=== PATIENT | male | born 1990 | race Caucasian/White ===

== ENCOUNTER 2025-03-27 08:38 | Emergency (ER) | payer OTHER, SELFPAY ==
[2025-03-27 08:45] VITALS: BP 141/87
[2025-03-27 09:22] LABS: Hematocrit 44.8 % (39.0-52.0); Hemoglobin 14.9 g/dL (13.0-18.0); Mean Corp Hgb Conc. 33.3 g/dL (33.0-37.0); Mean Corpuscular Volume 90.3 fL (80.0-94.0); Nucleated Red Blood Cells % 0 % (-); Platelet Count 209 10^3/uL (130-400); Red Cell Dist. Width 13.2 % (11.5-14.5)
[2025-03-27 09:34] LABS: ALT (SGPT) 31 U/L (0-50); AST (SGOT) 28 U/L (17-59); Albumin 4.2 g/dl (3.5-5.0); Alkaline Phosphatase 92 U/L (38-126); Blood Urea Nitrogen 16 mg/dl (9-20); Calcium 8.5 mg/dl (8.4-10.2); Carbon Dioxide 25 mmol/L (22-30); Chloride 105 mmol/L (98-107); Glucose 111 mg/dl (70-99); Lipase 68 U/L (23-300); Potassium 4.2 mmol/L (3.5-5.1); Sodium 138 mmol/L (135-145); Total Protein 7.2 g/dl (6.3-8.2); eGFR > 60.00
[2025-03-27 12:00] VITALS: BP 139/84
--- NOTE | 2025-03-27 13:33 | ED.GENMED ---
History of Present Illness
General
Chief Complaint: Abdominal Symptoms
Time Seen by Provider: 03/27/25 11:05
History of Present Illness
History of Present Illness:
35-year-old male presents to the emergency department for evaluation of left lower abdominal pain associated with vomiting and diarrhea beginning last night. Pain feels similar to his past bouts of diverticulitis however he does not typically
experience vomiting with this. Denies any fevers, chills, or sweats. No hematemesis or hematochezia. No history of abdominal surgeries.
Review of Systems
Review of Systems
Allergies reviewed?: Yes
All Other Systems: ROS reviewed and negative except as documented in HPI and ROS
Phy Exam
Physical Exam
Physical Exam:
GEN: Well appearing, NAD, WDWN
HEENT: Oral mucosa moist, no scleral icterus
Cardiac: Regular rate
Lung: No respiratory distress, no tachypnea
Abdomen: Soft, diffusely tender 4 quadrants without focal pain
MSK: No gross deformity or injuries
Skin: Good color, no pallor or jaundice, no rashes
Neuro: AO x3, moves all extremities freely
Psych: Calm, cooperative
Course
Orders/Labs/Results
Orders:
Orders
03/27/25 09:01
Complete Blood Count/With Diff Urgent
Comprehensive Metabolic Panel Urgent
Lipase Urgent
03/27/25 11:39
CT Abd/Pel (IV only)-DH only Urgent
Comment:
Reason For Exam: LLQ pain/abd pain
03/27/25 13:34
Ondansetron Orally Disint [Zofran Odt (Orally Disintegrating)] 4 mg PO NOW STA
Abnormal Lab Results
03/27/25
09:01
Absolute Neuts (auto) 7.4 H 10^3/uL
(1.4-6.5)
Absolute Lymphs (auto) 0.7 L 10^3/uL
(1.2-3.4)
Absolute Monos (auto) 0.7 H 10^3/uL
(0.1-0.6)
Neutrophils % 83.3 H %
(42.2-75.2)
Lymphocytes % 7.4 L %
(20.5-51.1)
Glucose 111 H mg/dl
(70-99)
03/27/25 09:01
03/27/25 09:01
Vital Signs
Initial and Last Documented VS:
Initial Vital Signs
Temp Pulse Resp BP Pulse Ox
98.8 F 104 20 141/87 97
03/27/25 08:45 03/27/25 08:45 03/27/25 08:45 03/27/25 08:45 03/27/25 08:45
Last Documented Vital Signs
Temp Pulse Resp BP Pulse Ox
98.8 F 86 21 139/84 97
03/27/25 08:45 03/27/25 12:00 03/27/25 12:00 03/27/25 12:00 03/27/25 13:33
MDM/Problems Addressed
MDM/Problems Addressed:
Imaging shows no evidence for acute diverticulitis, rather this is most likely a viral syndrome given the vomiting and diarrhea, I discussed supportive care with the patient, no indication for antibiotics
*Pulse Oximetry
SaO2: 97
Oxygen Mode of Delivery: Room air
Patient hypoxic: no
*Critical Care Note
Total Time (30-74mins, 75-104mins- exclusive of procedures): Not Applicable
ED Attending Note
-
Portions of this chart may have been created with voice recognition software.� Occasional wrong word or��sound alike� substitutions may have occurred due to the inherent limitations of voice recognition software.
Discharge Plan
Departure
Patient Disposition: Home (Routine Discharge)
Date of Disposition: 03/27/25
Time of Disposition: 13:33
Patient with high blood pressure during this ER visit?: No
Discharge Problem:
Gastroenteritis
Instructions: Nausea and Vomiting, Adult (DC)
Prescriptions:
New
ondansetron 4 mg tablet,disintegrating
4 mg PO TIDPRN PRN (Reason: nausea/vomiting) Qty: 10 0RF
Referrals:
NONE,* [Family Provider, Internal Medicine]
Interventions
Interventions:
*General Assessment Last Done: 03/27/25 11:07
*Neglect/Abuse Screening Last Done: 03/27/25 11:07
*ED COVID-19 Vaccine History Last Done: 03/27/25 11:07
*ED Influenza Vaccine History Last Done: 03/27/25 11:07
[facility] Fall Risk Assessment Tool Last Done: 03/27/25 11:07
*Risk Screen - Suicide (C-SSRS) Last Done: 03/27/25 08:45
EX-Qlishq-Vzoqiproju Assessment Last Done: 03/27/25 11:07
Discharge Date and Time
Print Language: MACEDONIAN
[2025-03-27] MEDS: ZOFRAN ODT (ORALLY DISINTEGRATING) 4 MG PO (13:37)
== END 2025-03-27 14:02 | disposition home or self-care (01) ==
LOC: EMR 08:38
PROVIDERS: Student in an Organized Health Care Education/Training Program; EMERGENCY PHYSICIAN Emergency Medicine
DX: K52.9 Noninfective gastroenteritis and colitis, unspecified (principal)
CPT/HCPCS: 99284; 74177; 80053; 83690; 85025; Q9967